=== PATIENT | female | born 1985 | race Caucasian/White ===

== ENCOUNTER 2016-05-20 15:57 | Emergency (ER) | payer SELFPAY ==
[2016-05-20 17:11] VITALS: BP 129/75
== END 2016-05-20 21:35 | disposition left against medical advice (07) ==
LOC: ED 15:57
DX: M25.572 Pain in left ankle and joints of left foot (principal)

== ENCOUNTER 2016-05-21 05:49 | Emergency (ER) | payer OTHER ==
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
[2016-05-21] MEDS ORDERED: Acetaminophen TAB* 325 MG PO ONE (07:32)
--- NOTE | 2016-05-21 07:37 | RAD ---
HISTORY: Fall, lateral malleolar pain, left COMPARISONS: July 21, 2014 VIEWS: 3, Frontal, lateral, and oblique views of the left ankle FINDINGS: BONE DENSITY: Normal. BONES: There is no displaced fracture. JOINTS: There is no arthropathy. ALIGNMENT: There is no dislocation. SOFT TISSUES: Unremarkable. OTHER FINDINGS: None. IMPRESSION: NO ACUTE OSSEOUS INJURY. IF SYMPTOMS PERSIST, RECOMMEND REPEAT IMAGING.
[2016-05-21 07:45] VITALS: BP 117/79
== END 2016-05-21 07:44 | disposition home or self-care (01) ==
LOC: ED 05:49
DX: S93.402A Sprain of unspecified ligament of left ankle, initial encounter (principal); M25.572 Pain in left ankle and joints of left foot; W19.XXXA Unspecified fall, initial encounter; Y93.9 Activity, unspecified; Y92.9 Unspecified place or not applicable; F17.210 Nicotine dependence, cigarettes, uncomplicated
CPT/HCPCS: 99282; A9270-GY

== ENCOUNTER 2016-06-24 15:31 | Emergency (ER) | payer OTHER ==
[2016-06-24 16:24] LABS: Hematocrit 40 % (35-47); Hemoglobin 13.8 g/dl (12.0-16.0); Mean Corpuscular HGB Conc 35 g/dl (31-36); Mean Corpuscular Hemoglobin 30 pg (27-31); Mean Corpuscular Volume 87 fL (80-97); Mean Platelet Volume 8 um3 (7.4-10.4); Red Cell Distribution Width 12 % (10.5-15); White Blood Count 12.5 10^3/ul (3.5-10.8)
--- NOTE | 2016-06-24 16:27 | RAD ---
INDICATION: Chest pain COMPARISON: None TECHNIQUE: An AP portable view obtained at 1607 hours is submitted. FINDINGS: Bones/Soft Tissues: There are no acute bony findings. Cardiomediastinal: The cardiomediastinal silhouette is normal. Lungs: There are no infiltrates. Pleura: There are no pleural effusions. Other: None IMPRESSION: NO ACTIVE DISEASE.
[2016-06-24] MEDS ORDERED: NS 0.9% 1000 ML* 2,000 ML IV ONE (16:29)
[2016-06-24] MEDS ORDERED: Acetaminophen TAB* 325 MG PO ONE (16:46)
[2016-06-24 16:47] LABS: ALT 14 U/L (7-52); AST 14 U/L (13-39); Albumin 4.7 g/dL (3.2-5.2); Alkaline Phosphatase 62 U/L (34-104); Anion Gap 8 mmol/L (2-11); BUN/Creatinine Ratio 15.9 (8-20); Blood Urea Nitrogen 10 mg/dL (6-24); C Reactive Protein 3.82 mg/L (< 5.00); CO2 Carbon Dioxide 24 mmol/L (22-32); Calcium 9.6 mg/dL (8.6-10.3); Chloride 101 mmol/L (101-111); Creatine Kinase 94 U/L (10-223); EGFR Non-African American 108.8 (>60); Globulin 2.8 g/dL (2-4); Glucose 82 mg/dL (70-100); Magnesium 1.9 mg/dL (1.9-2.7); Potassium 3.7 mmol/L (3.5-5.0); Sodium 133 mmol/L (133-145); Total Protein 7.5 g/dL (6.4-8.9)
[2016-06-24 16:58] LABS: TSH (Thyroid Stimulating Horm) 1.86 mcIU/mL (0.34-5.60)
[2016-06-24] MEDS ORDERED: Ondansetron INJ* 2 MG/ML VIAL IV ONE (17:32)
[2016-06-24] MEDS ORDERED: Morphine INJ* 4 MG/ML 1 ML CARPUJECT IV ONE (17:32)
[2016-06-24 17:36] LABS: Urine Bilirubin Negative (Negative); Urine Glucose Negative (Negative); Urine Nitrite Negative (Negative)
[2016-06-24] MEDS ORDERED: Iohexol 350* (CONTRAST) 500 ML MDV IV ONE (18:46)
--- NOTE | 2016-06-24 19:24 | RAD ---
INDICATION: Chest pain for 3 weeks. Palpitations. Lower abdominal pain COMPARISON: Chest x-ray same date; CT chest and abdomen May 23, 2013 TECHNIQUE: Axial source images were obtained from the thoracic inlet to the symphysis pubis following administration of oral and intravenous contrast. 101 mL Omnipaque [address] angiographic technique was utilized for imaging the chest. Coronal and sagittal reconstructed images were acquired. CHEST FINDINGS: Neck/thyroid: The visualized neck to include the thyroid appear normal. Chest wall: There are no acute abnormalities of the bony thorax or chest wall. There is no supraclavicular, infraclavicular, or axillary lymphadenopathy. Lungs : There are no pulmonary parenchymal masses or infiltrates. The pulmonary interstitium appears normal. There are no endobronchial lesions. Cardiomediastinal structures: The heart is normal in size. There is no pericardial effusion. There is no evidence of aortic aneurysm or dissection. The pulmonary vessels appear normal. There is no CT evidence of acute pulmonary embolic disease. There is no mediastinal or hilar adenopathy. The esophagus appears normal. Pleura : There are no pleural-based masses or effusions. ABDOMINAL/PELVIC FINDINGS: Liver: The liver is normal in size. There are no masses. There is no ductal dilatation. Gallbladder: There are no calcified gallstones. There is no evidence of wall thickening or pericholecystic fluid. Spleen: The spleen is normal in size. There are no masses. Pancreas: There is no evidence of pancreatic mass or ductal dilatation. Adrenal glands: There is no evidence of adrenal mass. Kidneys: The kidneys are normal in size and position. There are prompt nephrograms and there is prompt excretion bilaterally. There are no renal parenchymal masses. There is no evidence of nephrolithiasis. Adenopathy: There is no evidence of adenopathy by size criteria. Fluid collections: There are no free or localized fluid collections. Vessels:The aorta and IVC appear normal GI tract: There are no acute CT bowel findings. There is no obstruction. The stomach and small bowel appear normal. The lower GI tract is normal. The cecum, ileocecal valve, and terminal ileum appear normal. The appendix is visualized and appear normal. Pelvic organs: There is hysterectomy. There is no adnexal mass Bladder: There are no bladder masses. Abdominal and pelvic soft tissues: The extraperitoneal abdominal and pelvic soft tissues appear normal.. Osseous structures: There are no acute osseous findings. IMPRESSION: 1. No CT evidence of acute pulmonary embolic disease. Lungs clear. 2. No acute CT findings of the abdomen or pelvis. No mass or inflammatory change. 3. Hysterectomy
[2016-06-24] MEDS ORDERED: HYDROcodone/ACETAMIN 5-325 MG* 1 TAB PO ONE (19:51)
[2016-06-24] MEDS ORDERED: Azithromycin TAB* 250 MG PO ONE (19:51)
[2016-06-24 20:11] VITALS: BP 125/82
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
== END 2016-06-24 20:10 | disposition home or self-care (01) ==
LOC: ED 15:31
DX: R07.9 Chest pain, unspecified (principal); R61 Generalized hyperhidrosis; R42 Dizziness and giddiness; R06.02 Shortness of breath; R11.0 Nausea; R00.2 Palpitations; F17.210 Nicotine dependence, cigarettes, uncomplicated; R20.0 Anesthesia of skin; Z90.710 Acquired absence of both cervix and uterus
CPT/HCPCS: 36415; 71010; 71275; 74177; 80053; 81003; 82550; 82553; 83605; 83735; 84443; 84484; 84702; 85025; 85379; 85610; 85730; 86140; 93005; 96374; 96375; 99284; A9270-GY; J2270; J2405; Q9967

== ENCOUNTER 2016-07-07 16:24 | Emergency (ER) | payer OTHER ==
[2016-07-07 16:40] VITALS: BP 140/92
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
--- NOTE | 2016-07-07 18:02 | RAD ---
INDICATION: Anterior rib pain after coughing COMPARISON: None. TECHNIQUE: 4 views of the chest and left ribs were obtained. FINDINGS: An external marker is noted overlying the left anterior lateral ribs, presumably at the patient's indicated maximum site of tenderness. No fracture or significant focal osseous abnormality is seen. No pneumothorax is apparent. IMPRESSION: NO EVIDENCE FOR FRACTURE, IF THE PATIENT'S SYMPTOMS PERSIST RECOMMEND FOLLOW-UP IMAGING.
== END 2016-07-07 18:40 | disposition left against medical advice (07) ==
LOC: UCEAST 16:24
DX: R07.89 Other chest pain (principal); R50.9 Fever, unspecified; Z88.6 Allergy status to analgesic agent; Z88.0 Allergy status to penicillin; F17.210 Nicotine dependence, cigarettes, uncomplicated
CPT/HCPCS: 93005; 99212; G0463

== ENCOUNTER 2016-07-08 05:55 | Emergency (ER) | payer OTHER ==
[2016-07-08] MEDS ORDERED: traMADol TAB* 50 MG PO ONE (07:51)
[2016-07-08 12:06] VITALS: BP 116/79
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
== END 2016-07-08 09:00 | disposition home or self-care (01) ==
LOC: ED 05:55
DX: R07.9 Chest pain, unspecified (principal); R50.9 Fever, unspecified; R05 Cough; F17.210 Nicotine dependence, cigarettes, uncomplicated
CPT/HCPCS: 93005; 99282; A9270-GY

== ENCOUNTER 2016-07-17 16:17 | Emergency (ER) | payer OTHER ==
[2016-07-17 16:24] VITALS: BP 137/92
[2016-07-17] MEDS ORDERED: predniSONE TAB* 20 MG PO ONE (17:17)
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
== END 2016-07-17 17:40 | disposition home or self-care (01) ==
LOC: ED 16:17
DX: R07.89 Other chest pain (principal); Z88.0 Allergy status to penicillin; F17.210 Nicotine dependence, cigarettes, uncomplicated
CPT/HCPCS: 99282; J7512

== ENCOUNTER 2016-08-01 15:51 | Emergency (ER) | payer OTHER ==
[~2016-08-01 15:51] MED LIST: Lidocaine Patch REMOVE* 1 NOTE MISC PATCH OFF SCH
[2016-08-01 16:05] VITALS: BP 122/69
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
--- NOTE | 2016-08-01 19:08 | RAD ---
INDICATION: Back pain after a fall COMPARISON: Similar x-ray series dated February 20, 2015 TECHNIQUE: 5 views of the lumbar spine were obtained. FINDINGS: The vertebra are in normal alignment. No fracture is seen. Disc spaces appear maintained. IMPRESSION: No evidence of fracture or subluxation.
[2016-08-01] MEDS ORDERED: Lidocaine PATCH 5%* 1 PATCH TRANSDERM SCH (19:35)
--- NOTE | 2016-08-01 19:37 | ED ---
Progress - Progress Note Progress Note: Pt's XR w/o fx or dislocation - lidoderm patch ordered for pain as she has allergies to NSAID's and no relief w/ acetaminophen prior to arrival. Advised f/ u w/ PCP for further care as needed (ie. PT, aquatherapy, massage, etc). Also reviewed pt's [facility]STOP w/ Marcos Perez PA-c and pt appears to have received narcotics frequently from various ED providers as well as PCP over the past - no narcotics rx'd today and tx recommended is appropriate for pt's recovery. Course/Dx - Diagnoses Provider Diagnoses: Back pain
== END 2016-08-01 19:45 | disposition home or self-care (01) ==
LOC: ED 15:51
DX: M54.9 Dorsalgia, unspecified (principal)
CPT/HCPCS: 72110; 99282; A9270-GY

== ENCOUNTER 2016-09-08 15:36 | Emergency (ER) | payer OTHER ==
[2016-09-08 17:44] VITALS: BP 135/91
== END 2016-09-08 19:26 | disposition left against medical advice (07) ==
LOC: ED 15:36
DX: R10.9 Unspecified abdominal pain (principal); Z53.21 Procedure and treatment not carried out due to patient leaving prior to being seen by health care provider

== ENCOUNTER 2016-09-16 04:53 | Emergency (ER) | payer OTHER ==
[2016-09-16 04:59] VITALS: BP 130/89
--- NOTE | 2016-09-16 07:59 | RAD ---
INDICATION: Left hip pain COMPARISON: None TECHNIQUE: An AP view of the pelvis and AP views of the hip in neutral and abducted position were obtained FINDINGS: Bones: There are no acute bony findings. Joint spaces: The hips articulate normally. The joint spaces are preserved. SI joints/symphysis: The SI joints and symphysis are intact. Other: None IMPRESSION: NEGATIVE EXAMINATION.
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
== END 2016-09-16 06:35 | disposition home or self-care (01) ==
LOC: ED 04:53
DX: M79.605 Pain in left leg (principal)
CPT/HCPCS: 99281

== ENCOUNTER 2016-11-30 09:06 | Emergency (ER) | payer SELFPAY ==
[2016-11-30 09:20] VITALS: BP 138/76
[2016-11-30] MEDS ORDERED: HYDROcodone/ACETAMIN 5-325 MG* 1 TAB PO ONE (10:22)
--- NOTE | 2016-11-30 10:41 | RAD ---
HISTORY: Left fifth finger pain, trauma COMPARISONS: None VIEWS: 3, Frontal, lateral, and oblique views of the fifth digit of left hand FINDINGS: BONE DENSITY: Normal. BONES: There is no displaced fracture. JOINTS: There is no arthropathy. ALIGNMENT: There is no dislocation. SOFT TISSUES: Unremarkable. OTHER FINDINGS: None. IMPRESSION: NO ACUTE OSSEOUS INJURY. IF SYMPTOMS PERSIST, RECOMMEND REPEAT IMAGING.
--- NOTE | 2016-11-30 15:20 | UC ---
kathleen Moya Timothy, scribed for Ellen Irving DO on 11/30/16 at 1006 . Upper Extremity HPI - HPI Summary HPI Summary: Vania Schwartz is a 31 yo female presenting to [facility] with 8/10 in her left little finger S/P getting it stuck in a drill being twisted at work this morning at approximately 0900. She denies any CP, SOB, urinary Sx, fever, or any other Sx. Her MHx includes migraine, asthma, hysterectomy, anxiety, tobacco use. She does smoke in the house and in the car. Her right hand is dominant. - History of Current Complaint Chief Complaint: UCUpperExtremity Stated Complaint: FINGER INJURY Time Seen by Provider: 11/30/16 11:09 Hx Obtained From: Patient Hx Last Menstrual Period: hysterectomy Onset/Duration: Sudden Onset, Lasting Hours, Still Present Severity Initially: Moderate Severity Currently: Moderate Pain Intensity: 8 Pain Scale Used: 0-10 Numeric Location Of Pain: Is Discrete @ - Left little finger Aggravating Factor(s): Movement, Flexion, Extension Alleviating Factor(s): Elevation, Ice Associated Signs And Symptoms: Positive: Swelling - minimal. Negative: Redness , Bruising, Fever, Weakness, Numbness/Tingling Related History: Dominant Hand Right - Allergies/Home Medications Allergies/Adverse Reactions: Allergies Allergy/AdvReac Type Severity Reaction Status Date / Time NSAIDs Allergy Severe Swelling Verified 11/30/16 09:20 Latex Allergy Intermediate Swelling Verified 11/30/16 09:20 Amoxicillin Allergy Unknown Verified 11/30/16 09:20 Reaction Details Bee Venom Allergy Anaphylatic Verified 11/30/16 09:20 Shock Home Medications: Home Medications Hydrocodone-Acetaminophen [Hydrocodone/Acetaminophen 5-325 mg] 1 tab PO [History] PMH/Surg Hx/FS Hx/Imm Hx Respiratory History: Asthma Neurological History: Migraine Psychological History: Anxiety Other History Of: Negative For: Anticoagulant Therapy - Surgical History Surgical History: Yes Surgery Procedure, Year, and Place: hysterectomy. c section 2002. bilat hand surgeries - trigger finger and tendonitis. impacted wisdom teeth extracted . HERNIA - Family History Known Family History: Positive: Cardiac Disease - dad w/ 2 LA's, Hypertension, Diabetes - Social History Alcohol Use: Rare Alcohol Amount: special occassions Substance Use Type: None Smoking Status (MU): Light Every Day Tobacco Smoker Type: Cigarettes Amount Used/How Often: 1/2PPD Household Exposure Type: Cigarettes Cessation Counseling: Patient Advised to Stop - Immunization History Most Recent Influenza Vaccination: Never Most Recent Tetanus Shot: up to date - 2011 Review of Systems Constitutional: Negative Skin: Negative Eyes: Negative ENT: Negative Respiratory: Negative Cardiovascular: Negative Gastrointestinal: Negative Genitourinary: Negative Motor: Negative Neurovascular: Negative Musculoskeletal: Other: - left little finger pain Neurological: Negative Psychological: Negative All Other Systems Reviewed And Are Negative: Yes Physical Exam Triage Information Reviewed: Yes Appearance: Well-Appearing, No Pain Distress, Well-Nourished Vital Signs: Initial Vital Signs Temp 98.3 F 11/30/16 09:16 Pulse 72 11/30/16 09:16 Resp 20 11/30/16 09:16 BP 138/76 11/30/16 09:16 Pulse Ox 100 11/30/16 09:16 Vital Signs Reviewed: Yes Eyes: Positive: Conjunctiva Clear. Negative: Discharge ENT: Positive: Hearing grossly normal. Negative: Muffled/hoarse voice Neck exam: Normal Neck: Positive: Supple Respiratory: Positive: Lungs clear, Normal breath sounds, No respiratory distress Cardiovascular: Positive: RRR, No Murmur Musculoskeletal: Positive: Strength Intact, ROM Intact, Other: - left tender fifth metacarpal, proximal and mid phalanx. minimal swelling Neurological Exam: Normal Neurological: Positive: Alert, Muscle Tone Normal Psychological Exam: Normal Psychological: Positive: Age Appropriate Behavior Skin Exam: Normal Skin: Positive: Other. Negative: rashes Diagnostics - Radiology L little finger XR Xray Interpretation: No Acute Changes - No acute osseus injury Radiology Interpretation Completed By: Radiologist Upper Extremity Course/Dx - Course Course Of Treatment: Vania Schwartz is a 31 yo female presenting to [facility] with 8 /10 pain in ehr lef little finger S/P twisiting it in a drill at work this morning. Pt medication list reviewed this visit. In the urgent care course she received hydrocodone/acetaminophen for pain management. Her L little finger XR suggests no acute osseus injury. Pt was counseled to stop smoking, as well as the risks of continuing smoking. After clinical examination and review of her imaging study, she will be discharged home with left little finger sprain with appropriate instructions and follow up. - Differential Dx/Diagnosis Differential Diagnosis/HQI/PQRI: Fracture (Closed), Strain, Sprain Provider Diagnoses: Left little finger sprain Discharge - Discharge Plan Condition: Stable Disposition: HOME Patient Education Materials: Splint Care (ED), Finger Sprain (ED) Forms: *Work Release Referrals: Alejandrina JOYCE,Mariluz Drew [Primary Care Provider] - (Follow up in 5-7 days for re -evaluation if not significantly improved.) Non Staff,Doctor [Medical Doctor] - 5 Days Additional Instructions: Please follow up at urgent care in 5-7 days regarding your little finger if your Sx do not improve. Talk to your primary care physician about help quitting smoking. Return to urgent care or the emergency department with any new or recurring symptoms. The documentation as recorded by the kathleen cheng Timothy accurately reflects the service I personally performed and the decisions made by , Ellen Irving DO.
== END 2016-11-30 11:52 | disposition home or self-care (01) ==
LOC: UCEAST 09:06
DX: S63.617A Unspecified sprain of left little finger, initial encounter (principal); W29.8XXA Contact with other powered hand tools and household machinery, initial encounter; G43.909 Migraine, unspecified, not intractable, without status migrainosus; J45.909 Unspecified asthma, uncomplicated; F41.9 Anxiety disorder, unspecified; F17.210 Nicotine dependence, cigarettes, uncomplicated; Z88.3 Allergy status to other anti-infective agents; Z91.030 Bee allergy status; Z91.040 Latex allergy status
CPT/HCPCS: 73140; 99212; G0463

== ENCOUNTER 2016-12-08 10:37 | Emergency (ER) | payer SELFPAY ==
[2016-12-08 10:45] VITALS: BP 149/78
--- NOTE | 2016-12-08 11:19 | UC ---
Hand/Wrist HPI - HPI Summary HPI Summary: While using a drill 11/30/16 L hand was twisted around, L finger caught in an opening. Seen here for L 5th finger pain that day, negative x-ray. Returns here with pain persisting in L hand ulnar side, concerned she may need another x- ray. Would like to get back to work but needs splinting in order to use her L hand fully. 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 Associated Signs And Symptoms: Positive: Negative Related History: Dominant Hand Right - Allergies/Home Medications Allergies/Adverse Reactions: Allergies Allergy/AdvReac Type Severity Reaction Status Date / Time NSAIDs Allergy Severe Swelling Verified 12/08/16 10:45 Latex Allergy Intermediate Swelling Verified 12/08/16 10:45 Amoxicillin Allergy SEVERE Verified 12/08/16 10:45 ITCHY HIVES Bee Venom Allergy Anaphylatic Verified 12/08/16 10:45 Shock Home Medications: Home Medications Multiple Vitamins W/ Minerals [Multivitamin] 1 tab PO DAILY 12/08/16 [History Confirmed 12/08/16] PMH/Surg Hx/FS Hx/Imm Hx - Additional Past Medical History Additional PMH: L 2nd finger hx tendinitis, trigger finger release Respiratory History: Asthma Other History Of: Negative For: Anticoagulant Therapy - Surgical History Surgical History: Yes Surgery Procedure, Year, and Place: hysterectomy. c section 2002. bilat hand surgeries - trigger finger and tendonitis. impacted wisdom teeth extracted . HERNIA - Family History Known Family History: Positive: Cardiac Disease - dad w/ 2 HI's, Hypertension, Diabetes - Social History Occupation: Employed Full-time Alcohol Use: Rare Alcohol Amount: special occassions Substance Use Type: None Smoking Status (MU): Heavy Every Day Tobacco Smoker Type: Cigarettes Amount Used/How Often: 1/2-1PPD Household Exposure Type: Cigarettes - Immunization History Most Recent Influenza Vaccination: Never Most Recent Tetanus Shot: up to date - 2012 Review of Systems Constitutional: Negative Skin: Negative Eyes: Negative ENT: Negative Respiratory: Negative Cardiovascular: Negative Gastrointestinal: Negative Genitourinary: Negative Motor: Negative Neurovascular: Negative Musculoskeletal: Other: - L hand pain Neurological: Negative Psychological: Negative All Other Systems Reviewed And Are Negative: Yes Physical Exam Triage Information Reviewed: Yes Appearance: Well-Appearing, No Pain Distress, Well-Nourished Vital Signs: Initial Vital Signs Temp 98.6 F 12/08/16 10:41 Pulse 81 12/08/16 10:41 Resp 16 12/08/16 10:41 BP 149/78 12/08/16 10:41 Pulse Ox 99 12/08/16 10:41 Vital Signs Reviewed: Yes Eye Exam: Normal, Other - PERRL Eyes: Positive: Conjunctiva Clear ENT Exam: Normal ENT: Positive: Normal ENT inspection, Hearing grossly normal, Pharynx normal, TMs normal Dental Exam: Normal Neck exam: Normal Neck: Positive: Supple, Nontender, No Lymphadenopathy Respiratory Exam: Normal Respiratory: Positive: Chest non-tender, Lungs clear, Normal breath sounds, No respiratory distress, No accessory muscle use Cardiovascular Exam: Normal Cardiovascular: Positive: RRR, No Murmur Musculoskeletal Exam: Other - 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 Full strength and ROM in L 5th finger Musculoskeletal: Positive: Strength Intact, ROM Intact Neurological Exam: Normal Neurological: Positive: Alert Psychological Exam: Normal Skin Exam: Normal Hand/Wrist Course/Dx - Differential Dx/Diagnosis Provider Diagnoses: L hand sprain. elevated blood pressure due to pain Discharge - Discharge Plan Condition: Stable Disposition: HOME Patient Education Materials: Hand Sprain (ED) Forms: *Work Release Referrals: Sacha Rodriguez MD [Medical Doctor] - 5 Days
--- NOTE | 2016-12-08 12:01 | RAD ---
INDICATION: Pain of the fifth metacarpal since injury November 30, 2016 COMPARISON: Left small finger radiograph dated November 30, 2016 TECHNIQUE: 4 views of the left hand were obtained. FINDINGS: The adequately corticated bones are in normal alignment. No significant focal osseous abnormality or fracture is seen. Joint spaces appear maintained. IMPRESSION: Normal left hand radiograph. If the patient's symptoms persist, follow-up imaging is recommended.
== END 2016-12-08 12:34 | disposition home or self-care (01) ==
LOC: UCEAST 10:37
DX: S63.92XD Sprain of unspecified part of left wrist and hand, subsequent encounter (principal); X50.1XXD Overexertion from prolonged static or awkward postures, subsequent encounter; R03.0 Elevated blood-pressure reading, without diagnosis of hypertension; J45.909 Unspecified asthma, uncomplicated; Z88.6 Allergy status to analgesic agent; Z91.040 Latex allergy status; Z88.1 Allergy status to other antibiotic agents; Z91.030 Bee allergy status; F17.210 Nicotine dependence, cigarettes, uncomplicated
CPT/HCPCS: 99211; G0463

== ENCOUNTER 2016-12-28 11:16 | Emergency (ER) | payer OTHER ==
--- NOTE | 2016-12-28 11:25 | UC ---
Abdominal Pain Female HPI - HPI Summary HPI Summary: 31 YEAR OLD FEMALE PRESENTS WITH COMPLAINS OF SEVERE RLQ PAIN. I WILL SEND HER TO THE ER TO RULE OUT APPENDICITIS. - History of Current Complaint Chief Complaint: UCAbdominalPain Stated Complaint: ABDOMINAL PAIN Time Seen by Provider: 12/28/16 11:24 Hx Obtained From: Patient Hx Last Menstrual Period: hysterectomy Onset/Duration: Sudden Onset Severity Initially: Moderate Severity Currently: Moderate Pain Scale Used: 0-10 Numeric - 9 Location: Discrete At: RLQ Character: Sharp Aggravating Factor(s): Movement, Deep Breaths Allergies/Adverse Reactions: Allergies Allergy/AdvReac Type Severity Reaction Status Date / Time NSAIDs Allergy Severe Swelling Verified 12/28/16 11:29 Latex Allergy Intermediate Swelling Verified 12/28/16 11:29 Amoxicillin Allergy SEVERE Verified 12/28/16 11:29 ITCHY HIVES Bee Venom Allergy Anaphylatic Verified 12/28/16 11:29 Shock Home Medications: Home Medications Fluconazole [Diflucan 100 mg tab] 100 mg PO 12/28/16 [History] PMH/Surg Hx/FS Hx/Imm Hx Previously Healthy: Yes Other History Of: Negative For: Anticoagulant Therapy - Surgical History Surgical History: Yes Surgery Procedure, Year, and Place: hysterectomy. c section 2002. bilat hand surgeries - trigger finger and tendonitis. impacted wisdom teeth extracted . HERNIA - Family History Known Family History: Positive: Cardiac Disease - dad w/ 2 MS's, Hypertension, Diabetes - Social History Alcohol Use: Rare Alcohol Amount: special occassions Substance Use Type: None Smoking Status (MU): Heavy Every Day Tobacco Smoker Type: Cigarettes Amount Used/How Often: 1/2-1PPD Household Exposure Type: Cigarettes - Immunization History Most Recent Influenza Vaccination: Never Most Recent Tetanus Shot: up to date - 2011 Review of Systems Constitutional: Negative Skin: Negative Eyes: Negative ENT: Negative Respiratory: Negative Cardiovascular: Negative Gastrointestinal: Abdominal Pain - RLQ Genitourinary: Negative Motor: Negative Neurovascular: Negative Musculoskeletal: Negative Neurological: Negative Psychological: Negative All Other Systems Reviewed And Are Negative: Yes Physical Exam Triage Information Reviewed: Yes Vital Signs Reviewed: Yes Eye Exam: Normal ENT Exam: Normal Dental Exam: Normal Neck exam: Normal Neck: Positive: 1 Respiratory Exam: Normal Cardiovascular Exam: Normal Abdomen Description: Positive: Other: - RLQ PAIN Musculoskeletal Exam: Normal Neurological Exam: Normal Psychological Exam: Normal Skin Exam: Normal Abd Pain Female Course/Dx - Differential Dx/Diagnosis Provider Diagnoses: RLQ PAIN Discharge - Discharge Plan Condition: Stable Disposition: HOME Patient Education Materials: Acute Abdominal Pain (ED) Referrals: Alejandrina JOYCE,Mariluz Drew [Primary Care Provider] -
[2016-12-28 11:49] VITALS: BP 128/63
== END 2016-12-28 12:02 | disposition home or self-care (01) ==
LOC: UCEAST 11:16
DX: R10.31 Right lower quadrant pain (principal); Z88.6 Allergy status to analgesic agent; Z88.3 Allergy status to other anti-infective agents; Z91.030 Bee allergy status; Z91.040 Latex allergy status; F17.210 Nicotine dependence, cigarettes, uncomplicated
CPT/HCPCS: 99213; G0463

== ENCOUNTER 2016-12-28 12:21 | Emergency (ER) | payer OTHER ==
[2016-12-28 13:22] LABS: Hematocrit 43 % (35-47); Hemoglobin 14.6 g/dl (12.0-16.0); Mean Corpuscular HGB Conc 34 g/dl (31-36); Mean Corpuscular Hemoglobin 31 pg (27-31); Mean Corpuscular Volume 90 fL (80-97); Mean Platelet Volume 8 um3 (7.4-10.4); Red Blood Count 4.73 10^6/ul (4.0-5.4); Red Cell Distribution Width 13 % (10.5-15); White Blood Count 10.8 10^3/ul (3.5-10.8)
[2016-12-28 13:29] LABS: Urine Bilirubin Negative (Negative); Urine Glucose Negative (Negative); Urine Nitrite Negative (Negative)
[2016-12-28 13:35] VITALS: BP 124/74
[2016-12-28 13:44] LABS: ALT 12 U/L (7-52); AST 15 U/L (13-39); Albumin 4.9 g/dL (3.2-5.2); Alkaline Phosphatase 66 U/L (34-104); Anion Gap 7 mmol/L (2-11); BUN/Creatinine Ratio 24.1 (8-20); Blood Urea Nitrogen 14 mg/dL (6-24); CO2 Carbon Dioxide 23 mmol/L (22-32); Calcium 9.5 mg/dL (8.6-10.3); Chloride 104 mmol/L (101-111); EGFR Non-African American 119.7 (>60); Globulin 2.9 g/dL (2-4); Glucose 78 mg/dL (70-100); Lipase 23 U/L (11.0-82.0); Magnesium 1.9 mg/dL (1.9-2.7); Potassium 3.6 mmol/L (3.5-5.0); Sodium 134 mmol/L (133-145); Total Protein 7.8 g/dL (6.4-8.9)
[2016-12-28] MEDS ORDERED: Ondansetron INJ* 2 MG/ML VIAL IV ONE (13:46)
[2016-12-28] MEDS ORDERED: Morphine INJ* 4 MG/ML 1 ML SYRINGE IV ONE (13:46)
[2016-12-28] MEDS ORDERED: NS 0.9% 1000 ML* 1,000 ML IV ONE (13:46)
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
--- NOTE | 2016-12-28 15:29 | RAD ---
CLINICAL HISTORY: Right flank pain COMPARISON: June 24, 2016 TECHNIQUE: Multiple contiguous axial CT scans were obtained of the abdomen and pelvis, without intravenous contrast enhancement. Coronal and sagittal multiplanar reformations are submitted for review. Oral contrast was not administered. FINDINGS: The study is limited by the lack of intravenous contrast. This limits evaluation of the solid organs and vasculature. LUNG BASES: The lung bases are clear. LIVER: The liver is normal in shape, size, contour, and attenuation. BILE DUCTS: There is no intrahepatic or extrahepatic biliary dilatation. GALLBLADDER: The gallbladder is normal, without pericholecystic inflammatory change. PANCREAS: The pancreas is normal, without mass or ductal dilatation. SPLEEN: Normal in size and appearance. UPPER GI TRACT: Evaluation of the gastrointestinal tract is limited by incomplete gastric distention. The upper GI tract is unremarkable. SMALL BOWEL AND MESENTERY: The small bowel is normal in contour, course, and caliber. There is no obstruction or dilatation. COLON: The colon is normal in contour, course, caliber. There is no pericolonic inflammatory change. There is a tubular, vermiform, hollow viscus that is blind ending, and originates from the cecum, consistent with a normal appendix. There is no periappendiceal inflammatory change. This is best seen on axial images 117 through 139. ADRENALS: Normal bilaterally. KIDNEYS: The kidneys are normal in shape, size, contour, and axis. There is no hydronephrosis or nephrolithiasis. BLADDER: The bladder is smooth in contour. PELVIC ORGANS: The patient is status post partial hysterectomy. Vascular calcifications are noted in the pelvis. AORTA: The aorta is normal. IVC: Unremarkable LYMPH NODES: There is no lymphadenopathy by size criteria. ABDOMINAL WALL: There is no evidence for abdominal wall hernia. BONES AND SOFT TISSUES: There are mild diffuse degenerative changes. OTHER: There is small amount of free fluid within the pelvic cul-de-sac. IMPRESSION: 1. NO HYDRONEPHROSIS OR NEPHROLITHIASIS. 2. SMALL AMOUNT OF FREE FLUID WITHIN THE PELVIS.
== END 2016-12-28 15:59 | disposition home or self-care (01) ==
LOC: ED 12:21
DX: N76.0 Acute vaginitis (principal); R10.30 Lower abdominal pain, unspecified; R11.0 Nausea; F17.210 Nicotine dependence, cigarettes, uncomplicated
CPT/HCPCS: 36415; 74176; 80053; 81003; 83690; 83735; 84702; 85025; 85610; 85730; 87480; 87491; 87510; 87591; 87661; 96374; 96375; 99283; J2270; J2405

== ENCOUNTER 2017-01-04 16:47 | Emergency (ER) | payer OTHER ==
[2017-01-04] MEDS ORDERED: oxyCODONE/Acetamin 5/325 MG* TAB PO ONE (17:39)
--- NOTE | 2017-01-04 18:40 | RAD ---
Indication: Left adnexal pain. Real-time sonography of the pelvis was performed. Patient is status post hysterectomy. The right ovary measures 2.7 x 2.4 x 2.0 cm transabdominally. Endovaginally the left ovary measures 2.4 x 1.8 x 1.7 cm. Flow is noted in both ovaries. IMPRESSION: Patient is status post hysterectomy. Ovaries are unremarkable.
[2017-01-04] MEDS ORDERED: Morphine INJ* 4 MG/ML 1 ML SYRINGE IV ONE (18:58)
[2017-01-04] MEDS ORDERED: Ondansetron INJ* 2 MG/ML VIAL IV ONE (18:58)
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
[2017-01-04 19:17] LABS: Hematocrit 39 % (35-47); Hemoglobin 13.8 g/dl (12.0-16.0); Mean Corpuscular HGB Conc 35 g/dl (31-36); Mean Corpuscular Hemoglobin 31 pg (27-31); Mean Corpuscular Volume 89 fL (80-97); Mean Platelet Volume 8 um3 (7.4-10.4); Red Blood Count 4.44 10^6/ul (4.0-5.4); Red Cell Distribution Width 12 % (10.5-15); White Blood Count 11.2 10^3/ul (3.5-10.8)
[2017-01-04 19:39] LABS: Albumin 4.6 g/dL (3.2-5.2); BUN/Creatinine Ratio 23.3 (8-20); C Reactive Protein 2.15 mg/L (< 5.00); Calcium 9.5 mg/dL (8.6-10.3); EGFR African American 148.1 (>60); EGFR Non-African American 115.1 (>60); Globulin 2.6 g/dL (2-4); Potassium 3.6 mmol/L (3.5-5.0); Total Bilirubin 0.3 mg/dL (0.2-1.0); Total Protein 7.2 g/dL (6.4-8.9)
[2017-01-04] MEDS ORDERED: Iohexol 300* (CONTRAST) 10 ML SDV IV ONE (19:44)
[2017-01-04 19:50] VITALS: BP 123/74
--- NOTE | 2017-01-04 20:36 | RAD ---
Indication: Abdominal pain. CT of the abdomen and pelvis was performed without oral or IV contrast administration. Coronal and sagittal reconstructed images were obtained. Patient refused oral and IV contrast. The lung bases demonstrate no pleural fluid, nodules or masses. Heart is of normal size without pericardial effusion. Liver is normal in size. No focal lesions or intrahepatic ductal dilatation is noted. The gallbladder demonstrates no calcified gallstones. No pericholecystic fluid or wall thickening is identified. The pancreas demonstrates no mass or ductal dilatation. The spleen is normal in size. No adrenal masses are noted. The kidneys demonstrate no hydronephrosis in either kidney. No retroperitoneal lymphadenopathy is noted. No dilated loops of bowel are noted. Aorta and inferior vena cava are unremarkable. The bony structures are grossly unremarkable. CT of the pelvis demonstrates normal appendix. No dilated loops of bowel are noted. Diverticulosis without definite evidence of diverticulitis. No free fluid is identified. Urinary bladder is partially collapsed. IMPRESSION: No abnormal masses or fluid collections are noted. Normal appendix. No obstructive uropathy is noted.
[2017-01-04 20:46] LABS: Urine Bilirubin Negative (Negative); Urine Glucose Negative (Negative); Urine Nitrite Negative (Negative)
--- NOTE | 2017-01-04 21:17 | ED ---
Chiara Moya Rebecca, scribed for Glen Rain on 01/04/17 at 2059 . Progress - Progress Note Progress Note: Pt was signed out from Dr. Wynne at 1900, pending disposition, awaiting CT Abd/ Pel. - Results/Orders Results/Orders: CT Abd/Pel as read by radiologist reveals: No abnormal masses or fluid collections are noted. Normal appendix. No obstructive uropathy is noted. ED physician reviewed this radiology report and agrees. Re-Evaluation - Re-Evaluation First Eval Re-Evaluation Time: 20:53 Comment: Discussed CT results and plan to D/C. Course/Dx - Course Course Of Treatment: Pt was signed out from Dr. Wynne [place] [address] Abd/ Pel results. CT Abd/Pel reveals "No abnormal masses or fluid collections are noted. Normal appendix. No obstructive uropathy is noted." She is stable and will be D/C to home with Dx of abdominal pain with Rx for Percocet 5/325 and a follow up with her PCP. She understands and agrees. Elevated BP noted and advised to f/u with PCP. - Diagnoses Provider Diagnoses: Abdominal pain The documentation as recorded by the Chiara cheng Rebecca accurately reflects the service I personally performed and the decisions made by , Glen Rain.
== END 2017-01-04 21:14 ==
LOC: ED 16:47
DX: R10.32 Left lower quadrant pain (principal); F17.210 Nicotine dependence, cigarettes, uncomplicated
CPT/HCPCS: 36415; 74176; 76830; 80053; 81003; 83605; 83690; 85025; 86140; 99283; A9270-GY; J2270; J2405

== ENCOUNTER 2017-04-05 16:53 | Emergency (ER) | payer SELFPAY ==
[2017-04-05 16:58] VITALS: BP 136/83
--- NOTE | 2017-04-05 17:27 | RAD ---
INDICATION: Left hand pain COMPARISON: None TECHNIQUE: AP and lateral views were obtained. FINDINGS: The bony structures, joint spaces, and soft tissues are normal for age. IMPRESSION: NEGATIVE EXAMINATION
== END 2017-04-05 20:16 | disposition home or self-care (01) ==
LOC: ED 16:53
DX: M79.642 Pain in left hand (principal); Z53.21 Procedure and treatment not carried out due to patient leaving prior to being seen by health care provider

== ENCOUNTER 2017-05-11 09:14 | Emergency (ER) | payer SELFPAY ==
--- NOTE | 2017-05-11 10:13 | RAD ---
HISTORY: Fall, low back pain COMPARISONS: August 01, 2016 VIEWS: 5 , Frontal, lateral, coned-down lateral sacral, and bilateral oblique views of the lumbar spine. FINDINGS: ALIGNMENT: The alignment is normal. VERTEBRAL BODIES: The vertebral body heights are normal. The interpedicular distances are normal. JOINTS: The facet joints are normal. INTERVERTEBRAL DISCS: The intervertebral disc heights are normal. SOFT TISSUE: Unremarkable. OTHER: The pelvis is unremarkable. The lung bases are clear. IMPRESSION: NO ACUTE OSSEOUS INJURY. IF SYMPTOMS PERSIST, RECOMMEND REPEAT IMAGING
--- NOTE | 2017-05-11 10:14 | RAD ---
Indication: Fall, fracture. 2 views of left hip and an AP view the pelvis demonstrates no fracture. No other bone or joint abnormality is noted. IMPRESSION: No fracture of left hip or pelvis is noted.
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
[2017-05-11] MEDS ORDERED: Lidocaine PATCH 5%* 1 PATCH TRANSDERM SCH (11:00)
[2017-05-11 11:07] VITALS: BP 117/74
[2017-05-11] MEDS ORDERED: Lidocaine Patch REMOVE* 1 NOTE MISC SCH (21:00)
== END 2017-05-11 11:06 | disposition home or self-care (01) ==
LOC: ED 09:14
DX: S39.012A Strain of muscle, fascia and tendon of lower back, initial encounter (principal); S70.02XA Contusion of left hip, initial encounter; W00.0XXA Fall on same level due to ice and snow, initial encounter; Y93.01 Activity, walking, marching and hiking; F17.210 Nicotine dependence, cigarettes, uncomplicated; Z88.6 Allergy status to analgesic agent; Z88.3 Allergy status to other anti-infective agents
CPT/HCPCS: 72110; 99282

== ENCOUNTER 2017-08-13 05:45 | Emergency (ER) | payer OTHER ==
[2017-08-13] MEDS ORDERED: NS 0.9% 1000 ML* 1,000 ML IV ONE (06:06)
[2017-08-13] MEDS ORDERED: HYDROmorphone INJ* 1 MG/ML CARPUJECT SYRINGE IV SLOW PU ONE (06:08)
[2017-08-13] MEDS ORDERED: Metoclopramide IV* 5 MG/ML 2 ML VIAL IV SLOW PU ONE (06:09)
[2017-08-13] MEDS ORDERED: HYDROmorphone INJ* 2 MG/ML CARPUJECT SYRINGE IV ONE (06:30)
[2017-08-13 06:51] LABS: ABS Basophils 0.1 10^3/ul (0-0.2); ABS Eosinophils 0.1 10^3/ul (0-0.6); ABS Lymphocytes 3.9 10^3/ul (1.0-4.8); ABS Monocytes 0.8 10^3/ul (0-0.8); ABS Neutrophils 5.5 10^3/ul (1.5-7.7); ABS Nucleated RBC 0 10^3/ul; Eosinophil % 0.9 % (0-6); Hematocrit 41 % (35-47); Hemoglobin 14.6 g/dl (12.0-16.0); Lymphocyte % 37.9 % (25-47); Mean Corpuscular HGB Conc 36 g/dl (31-36); Mean Corpuscular Hemoglobin 32 pg (27-31); Mean Corpuscular Volume 88 fL (80-97); Mean Platelet Volume 7.9 um3 (7.4-10.4); Nucleated Red Blood Cells % 0.1; Platelet Count 386 10^3/ul (150-450); Red Blood Count 4.62 10^6/ul (4.0-5.4); Red Cell Distribution Width 12 % (10.5-15); White Blood Count 10.4 10^3/ul (3.5-10.8)
[2017-08-13 06:54] LABS: INR 0.93 (0.77-1.02)
[2017-08-13 06:58] LABS: EGFR Non-African American 108.2 (>60)
[2017-08-13] MEDS ORDERED: Iohexol 350* (CONTRAST) 500 ML MDV IV ONE (07:05)
--- NOTE | 2017-08-13 09:16 | RAD ---
HISTORY: Left upper extremity pain and tenderness COMPARISONS: None relevant TECHNIQUE: Multiple transverse and longitudinal ultrasound images were obtained of the left upper extremity from the level of the internal jugular vein inferiorly through to the infra-cubital veins using grayscale, color Doppler, and spectral Doppler imaging with and without compression and with augmentation. Comparison images were obtained of the contralateral internal jugular vein and subclavian vein. FINDINGS: VEINS: The basilic vein is not well visualized within the forearm. The remainder of the venous system of the left upper extremity is compressible throughout its course, with normal flow on color Doppler imaging and normal response to augmentation on spectral Doppler imaging. SOFT TISSUES: Unremarkable. OTHER FINDINGS: None. IMPRESSION: NO LEFT LOWER EXTREMITY DEEP VEIN THROMBOSIS
[2017-08-13 09:56] VITALS: BP 00/00
--- NOTE | 2017-08-14 08:10 | ED ---
Armen Moya Angela, scribed for Sebastian Jewell MD on 08/13/17 at 0734 . Progress - Progress Note Progress Note: This pt was signed out by Dr. Welch, pending disposition, awaiting CTA chest and US of LUE. Pt is a 32 y/o female presenting to [facility] c/o left upper extremity pain. She reports that pain began in the left upper arm, and is now also in the axillary area and on the left lateral chest wall. Left upper extremity venous doppler study, as read by radiologist IMPRESSION: No left lower extremity deep vein thrombosis. Dr. Jewell has reviewed this radiology report. Re-Evaluation - Re-Evaluation First Eval Re-Evaluation Time: 07:34 Comment: Pt is currently being taken to CT. Second Eval Re-Evaluation Time: 09:21 Comment: I reviewed the US results of LUE with the pt. Pt will be discharged home. Course/Dx - Course Course Of Treatment: This pt was signed out by Dr. Welch to follow up on the CTA chest and left upper extremity US. Test results without any significant abnormalities. Pt refused a chest/thorax CTA in the ED. Left upper extremity ultrasound shows no left lower extremity deep vein thrombosis. Since the ultrasound is negative for DVT, she will be discharged to home with follow up from her PCP. I discussed all the findings and test results with the patient. All questions were answered to patient satisfaction. There were no further complaints or concerns. Pt was given a prescription for Geronimo. She is instructed to return to the ED for any worsening or new symptoms. Pt is hemodynamically stable, alert and oriented x3. - Diagnoses Provider Diagnoses: Left arm pain Discharge - Sign-Out/Discharge Documenting (check all that apply): Discharge - discharge to home, Receiving Sign-Out Receiving patient FROM: You Welch - Discharge Plan Condition: Stable Disposition: HOME Prescriptions: Hydrocodone/Acetaminophen [Geronimo 5-325 Tablet] 1 each PO 10 PRN #10 tablet MDD 4 PRN Reason: Pain Patient Education Materials: Arm Pain (ED) Referrals: Maged Story DO [Primary Care Provider] - 3 Days Additional Instructions: Please follow up with your primary care provider. RETURN TO THE ED FOR ANY NEW OR WORSENING SYMPTOMS. The documentation as recorded by the Armen cheng Angela accurately reflects the service I personally performed and the decisions made by me, Sebastian Jewell MD.
== END 2017-08-13 09:56 | disposition home or self-care (01) ==
LOC: ED 05:45
DX: M79.602 Pain in left arm (principal)
CPT/HCPCS: 36415; 80053; 82550; 83735; 85025; 85610; 85730; 86140; 96360; 96374; 96375; 96376; 99283; J1170; J2765

== ENCOUNTER 2017-09-04 14:38 | Emergency (ER) | payer OTHER ==
--- OUTSIDE RECORDS SUMMARY | 2017-09-04 16:20 | XMS REPORT ---
:1985 External Reference #:[id number] Author Organization [facility] Address [address] [address] Phone [phone] Care Team Providers Name Role Phone Mariluz Tinoco PA Primary Care Physician Unavailable Payers Type Date Identification Numbers Payment Provider Subscriber Commercial Policy Number: [id number] Johnathon Schwartz Group Name: [id number] [address] PayID: [id number] [place] [address] Problems Date Description Provider Status Onset: 09/01/2017 [place]-neck deformity Sacha Rangel MD Active Onset: 09/01/2017 Bilateral carpal tunnel syndrome Sacha Rangel MD Active Family History Date Family Member(s) Problem(s) Comments General Diabetes General Heart Disease General Stroke General Hypertension General Cancer Father MD Father details unknown Mother Alive And Well Mother little information MGM had cardiac issues, specifics unknown Siblings 6 Siblings no known cardiac issues Social History Type Date Description Comments Marital Status Single Lives With Boyfriend Occupation Unemployed Cigarette Use Former Cigarette Smoker Cigarette Use Former Cigarette Smoker 1/2 Pack Daily ETOH Use Rarely consumes alcohol Recreational Drug Use Denies Drug Use Smoking Patient is a current smoker, smokes every day Daily Caffeine Consumes on average 2 cups of regular coffee per day Exercise Type/Frequency Negative For Does not exercise Allergies, Adverse Reactions, Alerts Date Description Reaction Status Severity Comments 09/01/2012 Latex active sensitive to powder with gloves 09/01/2012 NSAIDs active 02/26/2015 Amoxicillin active Medications Medication Date Status Form Strength Qnty SIG Indications Ordering Provider Epipen 2-Cayetano / Active Solution 0.3mg/0.3 use as Unknown 0000 Auto-Injec ML directed t Ventolin HFA / Active Aerosol 108(90Bas 2 puffs by Unknown 0000 e) mouth four mcg/Act times a day as needed Cyclobenzaprine / Active Tablets 5mg 1 tab po Unknown HCL 0000 bid prn Zyrtec Allergy / Active Capsules 10mg take one Unknown 0000 tablet by mouth in the evening Tylenol 8 Hour / Hx Tablets ER 650mg 90tab 1 po tid Unknown 0000 - s as needed for pain 2017 Buspirone HCL / Hx Tablets 5mg 1 tab po Unknown 0000 - tid 2014 Fioricet / Hx Capsules 50-300-40 1 by mouth Unknown 0000 - mg every 4 hrs for 10 2014 days Oxycodone/Apap / Hx Tablets 5-325mg 1 by mouth Unknown 0000 - every 4-6 hours prn. 2018 Hydrocodone-Aceta / Hx Tablets 7.5-325mg 1 by mouth Unknown minophen 0000 - every 6 hours as 2014 needed pain Lexapro / Hx Tablets 10mg 1 by mouth Unknown 0000 - every day 2014 Lidocaine HCL / Hx Gel 2% apply Unknown 0000 - sparingly to 2014 affected area three times a day Tramadol / Hx Tablets 37.5-325m 1-2 Unknown Hydrochloride/Bethel 0000 - g tablets taminophen 08/30/ every 6 2018 hours as needed pain (not currently taking, prev for H/A) Hydroxyzine HCL / Hx Solution 25mg/ml take 1 Unknown 0000 - every 6 hours as 2018 needed for anxiety Ondansetron / Hx Tablets 4mg 1 three Unknown 0000 - Dispers times a day as 2018 needed for nausea Vital Signs Date Vital Result Comment 09/01/2017 Height 61 inches 5'1" Weight 165.00 lb Heart Rate 80 /min BP Systolic 138 mmHg BP Diastolic 94 mmHg Respiratory Rate 16 /min Body Temperature 97.8 F Pain Level 8 BMI (Body Mass Index) 31.2 kg/m2 02/26/2015 Height 60.25 inches 5'0.25" Weight 162.19 lb w/shoes Heart Rate 88 /min BP Systolic Sitting 118 mmHg LA reg cuff BP Diastolic Sitting 78 mmHg LA reg cuff BMI (Body Mass Index) 31.4 kg/m2 Results Description No Information Procedures Date CPT Code Description Status 06/11/2017 47161 Holter Monitor Review (24 hr)dr jean & parisa Completed only 06/09/2017 34382 ECG Monitor/Recording W/Visual Superimposition Scanning Completed 04/17/2015 64235 ECHO Stress Test Incl Perf Contiuous ekg Monitoring Completed W/Phys Superv 02/26/2015 94914 EKG Tracing & Interpretation Completed Encounters Type Date Location Provider CPT E/M Dx Office Visit 09/01/2017 [facility] [place] [address] G56.03 10:30a [facility] M20.031 Office Visit 02/26/2015 10:20a [facility] Tal Larsen, [address] R00.2 M.DAlice R06.02 R00.0 Office Visit 05/01/2013 9:15a [facility] M.D. 39814 845.00 [facility] 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
[2017-09-04] MEDS ORDERED: traMADol TAB* 50 MG PO ONE (17:27)
[2017-09-04] MEDS ORDERED: Al Hydrox/Mg Hydrox/Simet LIQ* 30 ML UDC PO ONE (17:27)
[2017-09-04 17:35] LABS: ABS Basophils 0.1 10^3/ul (0-0.2); ABS Eosinophils 0.1 10^3/ul (0-0.6); ABS Lymphocytes 3.1 10^3/ul (1.0-4.8); ABS Monocytes 0.8 10^3/ul (0-0.8); ABS Neutrophils 9.8 10^3/ul (1.5-7.7); ABS Nucleated RBC 0 10^3/ul; Eosinophil % 0.6 % (0-6); Hematocrit 41 % (35-47); Hemoglobin 14.1 g/dl (12.0-16.0); Lymphocyte % 22.1 % (25-47); Mean Corpuscular HGB Conc 35 g/dl (31-36); Mean Corpuscular Hemoglobin 31 pg (27-31); Mean Corpuscular Volume 90 fL (80-97); Mean Platelet Volume 7.5 um3 (7.4-10.4); Nucleated Red Blood Cells % 0; Platelet Count 412 10^3/ul (150-450); Red Blood Count 4.54 10^6/ul (4.0-5.4); Red Cell Distribution Width 12 % (10.5-15); White Blood Count 13.9 10^3/ul (3.5-10.8)
[2017-09-04] MEDS: Lidocaine 2% VISCOUS* 15 ML UDC PO ONE ×2 (17:36→17:43)
--- NOTE | 2017-09-04 17:47 | RAD ---
INDICATION: Chest pain and shortness of breath. Cough. Scratchy throat. COMPARISON: June 29, 2016 TECHNIQUE: Dual energy PA and routine lateral views of the chest were obtained. REPORT: Clear lungs and pleural spaces. Negative for pneumothorax. The heart, pulmonary vasculature, and mediastinal contours are unremarkable. Unremarkable osseous structures and soft tissue contours. IMPRESSION: No evidence for acute intrathoracic disease.
[2017-09-04 17:55] LABS: EGFR Non-African American 112.3 (>60)
[2017-09-04] MEDS ORDERED: NS 0.9% 1000 ML* 1,000 ML IV ONE (18:08)
[2017-09-04] MEDS ORDERED: Pantoprazole IV* 40 MG IV ONE (18:08)
[2017-09-04] MEDS ORDERED: Iohexol 300* (CONTRAST) 10 ML SDV IV ONE (18:11)
--- NOTE | 2017-09-04 18:56 | RAD ---
INDICATION: LEFT upper quadrant pain. Post hysterectomy. COMPARISON: January 04, 2017 CT TECHNIQUE: Multidetector CT images were obtained from the lung bases to the ischial tuberosities with 100 mL Omnipaque 300 IV contrast. No oral contrast administered. Multiplanar reformation. REPORT: Unremarkable visualized inferior thorax. Unremarkable liver. Largely decompressed gallbladder limiting assessment without gross CT abnormality. Unremarkable pancreas and spleen. Negative for CT abnormality of the upper GI, small bowel, appendix, or colon. Negative for ascites, free air, or hernias. Normal adrenal glands. Unremarkable kidneys with symmetric nephrograms and pyelograms. Unremarkable nondilated ureters and distended urinary bladder. Post hysterectomy. 1.5 cm sharply circumscribed hypodense structure at the LEFT ovary most suspicious for a follicular or hemorrhagic cyst. Unremarkable RIGHT adnexal region. Negative for lymphadenopathy. Normal diameter abdominal aorta and iliac arteries. Physiologic distention of the IVC. Unremarkable osseous structures. IMPRESSION: 1. Normal appendix documented. 2. No pathologic process of the alimentary tract evident. 3. 1.5 cm sharply circumscribed hypodense structure at the LEFT ovary most suspicious for a follicular or hemorrhagic cyst. This is a low suspicion finding based on small size. 4. Negative for ascites.
[2017-09-04 19:56] VITALS: BP 126/82
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
== END 2017-09-04 20:02 | disposition home or self-care (01) ==
LOC: ED 14:38
DX: N83.202 Unspecified ovarian cyst, left side (principal); R07.81 Pleurodynia; R10.12 Left upper quadrant pain; R00.2 Palpitations; R10.9 Unspecified abdominal pain
CPT/HCPCS: 36415; 71046; 74177; 80053; 84484; 84702; 85025; 85379; 93005; 96374; 99283; A9270-GY; Q9967

== ENCOUNTER 2017-09-23 09:31 | Day surgery (SDC) | payer OTHER ==
[~2017-09-23 09:31] MED LIST changes: +Buffered Lidocaine 0.9% SYRIN* 5 ML/SYR SYRINGE INTRADERM ONE; +Dexamethasone IV* 4 MG/ML 1 ML (4 MG) IV SLOW PU ONE; +Famotidine IV* 10 MG/ML 2 ML (20 mg) IV ONE; -Lidocaine Patch REMOVE* 1 NOTE MISC PATCH OFF SCH
[2017-09-23] MEDS ORDERED: Famotidine IV* 10 MG/ML 2 ML (20 mg) ONE (09:39)
[2017-09-23] MEDS ORDERED: Dexamethasone IV* 4 MG/ML 1 ML (4 MG) ONE (09:39)
[2017-09-23] MEDS ORDERED: Lidocaine 2% PF * 5 ML VIAL ONE (13:28)
[2017-09-23] MEDS ORDERED: Propofol* 10 MG/ML 20 ML BTL IV PUSH ONE ×2 (13:28→13:56)
[2017-09-23] MEDS ORDERED: fentaNYL* 50 MCG/ML 2 ML VIAL (100 MCG VIAL) ONE ×2 (13:28→14:43)
[2017-09-23] MEDS ORDERED: Midazolam* 1 MG/ML 2 ML VIAL (2 MG) ONE ×3 (13:28→13:49)
[2017-09-23] MEDS ORDERED: HYDROcodone/ACETAMIN 5-325 MG* 1 TAB PO PRN (14:02)
[2017-09-23] MEDS ORDERED: Naloxone* 0.4 MG/ML 1 ML VIAL IV PRN (14:02)
[2017-09-23] MEDS ORDERED: Ondansetron INJ* 2 MG/ML VIAL IV PRN (14:02)
[2017-09-23] MEDS ORDERED: fentaNYL* 50 MCG/ML 2 ML VIAL (100 MCG VIAL) IV PRN (14:02)
[2017-09-23] MEDS ORDERED: Bupivacaine 0.25% SDV* 30 ML ONE (14:21)
[2017-09-23] MEDS ORDERED: HYDROcodone/ACETAMIN 5-325 MG* 1 TAB ONE (14:35)
[2017-09-23 14:52] VITALS: BP 121/76
--- NOTE | 2017-09-23 15:54 | OP ---
Operative Report - Blank - Operative Report Date of Operation: 09/23/17 Note: DATE OF OPERATION: 09/23/17 - [facility] DATE OF : 1985 SURGEON: Sacha Rangel MD EQUIPMENT MAINTENANCE SUPERINTENDENT: ISMA Hernandez ANESTHESIOLOGIST: Dr. Gandhi. ANESTHESIA: Local MAC. PRE-OP DIAGNOSIS: Right carpal tunnel syndrome. POST-OP DIAGNOSIS: Right carpal tunnel syndrome. OPERATIVE PROCEDURE: Right open carpal tunnel release. INDICATIONS: Vania has progressive right carpal tunnel syndrome. We talked about risks and benefits. She wanted to proceed. ESTIMATED BLOOD LOSS: 2 mL. COMPLICATIONS: None. FINDINGS: As expected. DESCRIPTION OF PROCEDURE: Vania was seen in the preoperative holding area. The correct side, site and the procedure were identified. We came back to the operating room. I anesthetized the operative area with 0.25% plain Marcaine. The arm was prepped and draped in usual fashion. The arm was exsanguinated with the Esmarch and the tourniquet was inflated to 250 mmHg. I made a 2 to 3 cm longitudinal incision in the standard location for an open carpal tunnel release. Dissection was carried down through the subcutaneous tissue and palmar fascia. Transverse carpal ligament was released off the radial aspect of the hook of the hamate. The release was completed distally and proximally I released the fascia and subcutaneous tissue and retracted this volarly and ulnarly and then under direct visualization I released the remainder of the transverse carpal ligament and distal antebrachial fascia to level several centimeters proximal to the wrist flexion crease. The release at this point was complete. Everything was looking good with absolutely no compression on the nerve. I irrigated out the wound. Skin was closed with 4-0 nylon suture. Wounds were dressed appropriately and he was taken to recovery room in stable condition.
== END 2017-09-23 15:26 | disposition home or self-care (01) ==
LOC: OREAST 09:31
PROVIDERS: ATTEND Orthopaedic Surgery Hand Surgery
DX: G56.01 Carpal tunnel syndrome, right upper limb (principal); M20.031 Swan-neck deformity of right finger(s); J45.909 Unspecified asthma, uncomplicated; F41.9 Anxiety disorder, unspecified; Z72.0 Tobacco use
CPT/HCPCS: J1100; J2250; J2704; J3010

== ENCOUNTER 2017-10-14 11:00 | Day surgery (SDC) | payer OTHER ==
[2017-10-14] MEDS ORDERED: Dexamethasone IV* 4 MG/ML 1 ML (4 MG) ONE (11:11)
[2017-10-14] MEDS ORDERED: Famotidine IV* 10 MG/ML 2 ML (20 mg) ONE (11:11)
[2017-10-14] MEDS ORDERED: Midazolam* 1 MG/ML 2 ML VIAL (2 MG) ONE ×2 (12:38→12:49)
[2017-10-14] MEDS ORDERED: fentaNYL* 50 MCG/ML 2 ML VIAL (100 MCG VIAL) ONE ×2 (12:38→14:17)
[2017-10-14] MEDS ORDERED: Propofol* 10 MG/ML 20 ML BTL IV PUSH ONE ×2 (12:49→13:50)
[2017-10-14] MEDS ORDERED: Lidocaine 2% PF * 5 ML VIAL ONE (12:49)
[2017-10-14] MEDS ORDERED: Naloxone* 0.4 MG/ML 1 ML VIAL IV PRN (12:56)
[2017-10-14] MEDS ORDERED: oxyCODONE/Acetamin 5/325 MG* TAB PO PRN (12:56)
[2017-10-14] MEDS ORDERED: Ondansetron INJ* 2 MG/ML VIAL IV PRN (12:56)
[2017-10-14] MEDS ORDERED: HYDROcodone/ACETAMIN 5-325 MG* 1 TAB PO PRN (12:56)
[2017-10-14] MEDS ORDERED: Bupivacaine 0.25% SDV* 30 ML ONE (13:25)
[2017-10-14] MEDS ORDERED: HYDROcodone/ACETAMIN 5-325 MG* 1 TAB ONE (14:21)
[2017-10-14] MEDS: fentaNYL* 50 MCG/ML 2 ML VIAL (100 MCG VIAL) IV PRN ×2 (14:21→14:32)
[2017-10-14 15:07] VITALS: BP 130/80
--- NOTE | 2017-10-16 08:00 | OP ---
DATE OF OPERATION: 10/14/17 [facility] DATE OF : [birth year] SURGEON: Sacha Rangel MD SANDWICH BOARD CARRIER: None. ANESTHESIOLOGIST: Mae Gandhi MD ANESTHESIA: Local MAC. PRE-OP DIAGNOSIS: Left carpal tunnel syndrome. POST-OP DIAGNOSIS: Left carpal tunnel syndrome. OPERATIVE PROCEDURE: Left open carpal tunnel release. INDICATIONS: Vania has clinically severe bilateral carpal tunnel. We have done the right side; that is doing very well. The left side continues to bother her and she wanted that done. We had talked about risks and benefits, she wanted to proceed. 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 ESTIMATED BLOOD LOSS: 2 mL. COMPLICATIONS: None. FINDINGS: As expected. DESCRIPTION OF PROCEDURE: Vania was seen in the preoperative holding area. The correct side, site, and procedure were identified. We came back to the operating room and the arm was prepped and draped in the usual fashion. A time- out was performed. I began by exsanguinating the arm with the Esmarch and the tourniquet was inflated to 250 mmHg. I made a standard 2- to 3-cm longitudinal incision in the typical location for an open carpal tunnel release. Dissection was carried down through the subcutaneous tissue and palmar fascia. The transverse carpal ligament was released just off the radial aspect of the hook of the hamate. Once the release was completed distally, I released the fascia and the subcutaneous tissue and retracted these volarly and ulnarly with a Estefany retractor. The remainder of the transverse carpal ligament and distal antebrachial fascia was released with the tenotomy scissors to a level several centimeters proximal to the wrist flexion crease. I then checked the decompression. Everything was completely decompressed. There was absolutely no compression on the nerve, so we irrigated out the wound and skin was closed with 4-0 nylon suture. Soft dressings were applied and she was taken to the recovery room in stable condition. [id number]/[facility] #: [id number] [facility]
== END 2017-10-14 15:10 | disposition home or self-care (01) ==
LOC: OREAST 11:00
PROVIDERS: ATTEND Orthopaedic Surgery Hand Surgery
DX: G56.02 Carpal tunnel syndrome, left upper limb (principal); J45.909 Unspecified asthma, uncomplicated; Z72.0 Tobacco use; F41.9 Anxiety disorder, unspecified
CPT/HCPCS: J1100; J2250; J2704; J3010

== ENCOUNTER 2017-12-25 15:22 | Emergency (ER) | payer OTHER ==
[2017-12-25] MEDS ORDERED: predniSONE TAB* 20 MG PO ONE (15:41)
[2017-12-25] MEDS ORDERED: Albuterol/Ipratropium NEB.SOL* Albuterol 2.5 MG/Ipratropium 0.5 MG 3 ML INH ONE (15:41)
[2017-12-25] MEDS ORDERED: Albuterol/Ipratropium NEB.SOL* Albuterol 2.5 MG/Ipratropium 0.5 MG 3 ML ONE (15:44)
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
--- OUTSIDE RECORDS SUMMARY | 2017-12-25 15:48 | XMS REPORT ---
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 unknown. The presence or absence of Lela species, or G. vaginalis cannot be used as a test for therapeutic success or failure. * ML - MAIN LAB ([facility]) . END OF REPORT * ML=Testing performed at Main Lab DEPARTMENT OF PATHOLOGY, [address] [place] [address] Clifton Fagan M.D. Director [facility] # [id number] 11 *Ascorbic acid is present which may interfere with detection of blood. 12 Because ethnic data is not always readily available, this report includes an eGFR for both -Americans and non- Americans. The National Kidney Disease Education Program (NKDEP) does not endorse the use of the MDRD equation for patients that are not between the ages of 18 and 70, are , have extremes of body size, muscle mass, or nutritional status, or are non- or non-. According to the National Kidney Foundation, irrespective of diagnosis, the stage of the disease is based on the level of kidney function: Stage Description GFR(mL/min/1.73 m(2)) 1 Kidney damage with normal or decreased GFR 90 2 Kidney damage with mild decrease in GFR 60-89 3 Moderate decrease in GFR 30-59 4 Severe decrease in GFR 15-29 5 Kidney failure <15 (or dialysis) 13 <5.0 Negative 5.0 - 25.0 Indeterminate (Repeat testing recommended after 72 hours) >25.0 Positive Perimenopausal women can display HCG levels of up to 20 mIU/mL Procedures Description No Information Encounters Type Date Location Provider CPT E/M Dx Office Visit 11/30/2017 11:25a [place] [address] K04.7 Office Visit 11/04/2017 4:15p [place] [address] M25.561 M20.031 F17.210 M23.91 Office Visit 10/21/2017 4:15p [place] [address] M54.5 M79.642 F17.210 Office Visit 09/30/2017 4:55p [place] [address] M54.5 M79.641 F17.210 Office Visit 09/20/2017 4:00p Main Office Chaitanya Odonnell M.D. 46549 M79.602 R00.0 H92.02 F41.9 Office Visit 09/07/2017 4:30p [place] [address] F41.9 R00.0 M65.321 N83.202 F17.210 Office Visit 08/18/2017 8:40a [place] [address] M79.622 M54.5 M25.562 L04.2 K21.9 M65.321 Office Visit 08/04/2017 8:40a [place] [address] M54.5 M25.569 F17.210 Office Visit 07/22/2017 3:15p [place] [address] L04.2 R14.0 F17.210 Office Visit 07/15/2017 3:15p [place] [address] M54.5 F43.0 F17.210 Office Visit 07/01/2017 9:25a [place] [address] J20.9 F17.210 M54.5 Office Visit 06/22/2017 4:10p [place] [address] H65.01 S86.012A E66.9 M54.5 F17.210 Z68.32 Office Visit 06/15/2017 4:30p [place] [address] M54.5 M25.562 R00.2 B37.3 E55.9 F17.210 Office Visit 06/01/2017 4:30p [place] [address] M54.5 A09 R00.2 F17.210 Office Visit 05/25/2017 11:05a [place] [address] R00.2 R07.89 F17.210 Office Visit 05/12/2017 4:40p [place] [address] M54.5 M25.552 W00.0xxA Office Visit 05/06/2017 4:55p [place] [address] L25.1 L23.9 T49.0x5A R10.32 M54.5 T49.0x5A L25.1 Office Visit 04/07/2017 4:20p [place] [address] M54.5 R10.32 Office Visit 03/09/2017 4:10p [place] [address] R10.32 M25.562 M54.5 F17.210 Office Visit 02/10/2017 4:00p [place] [address] R10.32 M25.562 F17.210 F43.0 Office Visit 01/19/2017 2:10p [place] [address] R10.32 Office Visit 01/06/2017 9:20a [place] [address] R10.32 K59.00 Office Visit 01/04/2017 3:20p Main Office Jacqueline Weston Lester [address] R10.32 Office Visit 12/29/2016 2:55p [place] [address] N83.209 R10.30 M25.562 Office Visit 12/24/2016 2:55p [place] [address] B35.9 J30.9 M25.562 S63.8x2D B35.3 Office Visit 12/15/2016 11:25a [place] [address] M25.562 S63.8x2D F17.210 L20.9 Office Visit 12/02/2016 4:40p [place] [address] L20.9 F17.210 M25.562 Z63.4 Office Visit 11/12/2016 4:55p [place] [address] M25.562 Z63.4 F17.210 S46.012A K04.7 Z13.88 Office Visit 10/14/2016 9:20a [place] [address] M25.562 J30.9 F17.210 Z63.4 F43.21 Office Visit 10/06/2016 2:35p [place] [address] M25.562 J30.9 F17.210 Office Visit 09/24/2016 9:05a [place] [address] M25.562 Office Visit 09/17/2016 11:45a [place] [address] M25.562 Plan of Care 11/30/2017 - Mariluz Tinoco PAK04.7 Periapical abscess without sinusNew Medication:Clindamycin HCL 300 mgOxycodone-Acetaminophen 5-325 mgComments:Rx for clindamycin and percocet for pain. Pain has appt with dentist on 12/02 (see HPI).
[2017-12-25] MEDS ORDERED: Ondansetron INJ* 2 MG/ML VIAL IV ONE (16:00)
[2017-12-25] MEDS ORDERED: NS 0.9% 1000 ML* 1,000 ML IV ONE (16:00)
--- NOTE | 2017-12-25 16:34 | RAD ---
HISTORY: cough, wheezing COMPARISONS: September 04, 2017 VIEWS: 4: Frontal dual-energy and lateral views of the chest. FINDINGS: CARDIOMEDIASTINAL SILHOUETTE: The cardiomediastinal silhouette is normal. CLIFTON: The clifton are normal. PLEURA: The costophrenic angles are sharp. No pleural abnormalities are noted. LUNG PARENCHYMA: The lungs are clear. ABDOMEN: The upper abdomen is clear. There is no subphrenic gas. BONES AND SOFT TISSUES: No bone or soft tissue abnormalities are noted. OTHER: None. IMPRESSION: NO ACTIVE CARDIOPULMONARY DISEASE.
[2017-12-25 16:43] VITALS: BP 111/95
== END 2017-12-25 16:53 | disposition home or self-care (01) ==
LOC: ED 15:22
DX: J20.9 Acute bronchitis, unspecified (principal); Z88.0 Allergy status to penicillin; Z88.6 Allergy status to analgesic agent; Z91.030 Bee allergy status; Z91.040 Latex allergy status; F17.210 Nicotine dependence, cigarettes, uncomplicated
CPT/HCPCS: 71046; 99283; A9270-GY; J7512

== ENCOUNTER 2017-12-25 23:58 | Emergency (ER) | payer OTHER ==
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
[2017-12-26] MEDS ORDERED: NS 0.9% 1000 ML* 1,000 ML IV ONE (01:26)
[2017-12-26] MEDS ORDERED: Ketorolac INJ* 30 MG/ML 1 ML VIAL IV PUSH ONE (01:26)
[2017-12-26] MEDS ORDERED: Acetaminophen TAB* 325 MG PO ONE (01:52)
[2017-12-26 03:11] VITALS: BP 125/74
== END 2017-12-26 03:15 | disposition home or self-care (01) ==
LOC: ED 23:58
DX: R07.89 Other chest pain (principal); J20.9 Acute bronchitis, unspecified; F17.210 Nicotine dependence, cigarettes, uncomplicated; K21.9 Gastro-esophageal reflux disease without esophagitis
CPT/HCPCS: 96361; 96374; 99282; A9270-GY

== ENCOUNTER 2018-06-22 07:56 | Emergency (ER) | payer OTHER ==
[2018-06-22] MEDS ORDERED: Acetaminophen TAB* 325 MG PO ONE (09:04)
[2018-06-22 09:48] VITALS: BP 146/87
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
== END 2018-06-22 09:48 | disposition home or self-care (01) ==
LOC: ED 07:56
DX: M25.562 Pain in left knee (principal); M54.5 Low back pain; Z88.0 Allergy status to penicillin; Z88.6 Allergy status to analgesic agent; Z91.030 Bee allergy status; Z91.040 Latex allergy status; F17.210 Nicotine dependence, cigarettes, uncomplicated
CPT/HCPCS: 72110; 99282; A9270-GY